=== PATIENT | male | born 1980 | race Caucasian/White ===

== ENCOUNTER 2024-12-21 09:09 | Day surgery (SDC) | payer BC ==
[~2024-12-21 09:09] MED LIST: Midazolam 1 MG/ML 2 ML SDV ONE; Propofol 200 MG/20 ML SDV ONE
[2024-12-21] MEDS: Lactated Ringers 1,000 ML IV SCH (09:55)
[2024-12-21] MEDS ORDERED: Propofol 200 MG/20 ML SDV IV ONE (10:00)
[2024-12-21] MEDS ORDERED: Sodium Chloride 0.9% 10 ML Syringe FLUSH PRN (13:00)
[2024-12-21] MEDS ORDERED: Lactated Ringers 1,000 ML IV SCH (13:00)
== END 2024-12-21 10:51 | disposition home or self-care (01) ==
LOC: LL.SDS 09:09
PROVIDERS: ATTEND Surgery
DX: Z12.11 Encounter for screening for malignant neoplasm of colon (principal); Z80.0 Family history of malignant neoplasm of digestive organs
CPT/HCPCS: J2250; J2704; J7120